=== PATIENT | male | born 1965 | race Caucasian/White ===

== ENCOUNTER 2022-01-02 12:24 | Outpatient (RCR) | payer OTHER ==
[2022-01-02 14:26] LABS: BASOPHILS % (AUTO) 0 % (0-10); EOSINOPHILS # (AUTO) 0.1 10^3/uL (0.0-0.3); EOSINOPHILS % (AUTO) 1 % (0-10); HEMATOCRIT 28 % (40-54); HEMOGLOBIN 8.3 g/dL (13.3-17.7); LYMPHOCYTES # (AUTO) 1.9 10^3/uL (1.0-4.0); LYMPHOCYTES % (AUTO) 21 % (12-44); MEAN CORPUSCULAR HEMOGLOBIN 24 pg (25-34); MEAN CORPUSCULAR HGB CONC 30 g/dL (32-36); MEAN CORPUSCULAR VOLUME 79 fL (80-99); MEAN PLATELET VOLUME 8.7 fL (9.0-12.2); MONOCYTES % (AUTO) 11 % (0-12); NEUTROPHILS # (AUTO) 5.9 10^3/uL (1.8-7.8); NEUTROPHILS % (AUTO) 64 % (42-75); PLATELET COUNT 460 10^3/uL (130-400); WHITE BLOOD COUNT 9.2 10^3/uL (4.3-11.0)
[2022-01-02 14:54] LABS: ALBUMIN 3.6 GM/DL (3.2-4.5); BILIRUBIN,TOTAL 0.4 MG/DL (0.1-1.0); CALCIUM 10.1 MG/DL (8.5-10.1); CREATININE SERUM 0.8 MG/DL (0.60-1.30); POTASSIUM 3.7 MMOL/L (3.6-5.0)
== END 2022-01-04 10:11 | disposition home or self-care (01) ==
LOC: ONC 12:24
PROVIDERS: ATTEND Internal Medicine Hematology & Oncology
DX: C90.00 Multiple myeloma not having achieved remission (principal); M84.40XA Pathological fracture, unspecified site, initial encounter for fracture; E11.9 Type 2 diabetes mellitus without complications; E78.5 Hyperlipidemia, unspecified; I10 Essential (primary) hypertension
CPT/HCPCS: 80053; 83883; 84155; 84165; 85025

== ENCOUNTER → 2022-01-10 | Outpatient (CLI) | payer OTHER ==
[~2022-01-10] MED LIST: CATHETER FLUSH 10 ML SYR IV PRN; HOLD METFORMIN - RECEIVED CONTRAST 20 ML VIAL IV SCH; IOHEXOL 350 MG/ML 100 ML (OMNIPAQUE 350) VIAL IV ONE; NS 100 ML (IVPB) BAG IV ONE
--- NOTE | 2022-01-10 12:44 | Diagnostic Imaging Report ---
PROCEDURE: CT chest, abdomen, and pelvis with contrast. TECHNIQUE: Multiple contiguous axial images were obtained through the chest, abdomen, and pelvis after the administration of intravenous contrast. Auto Exposure Controls were utilized during the CT exam to meet ALARA standards for radiation dose reduction. INDICATION: Myeloma No priors baseline exam. CHEST: A large permeative lytic lesion in the left humeral head extending caudally into its neck where there is cortical disruption and ashley-osseous soft tissue fullness likely extraosseous extension of tumor. There is a lucency in the T9 vertebral body to its posterior cortex. Multiple areas of rib mottled lucency likely owing to neoplastic infiltration. No lung mass. No thoracic lymphadenopathy. No edema or pneumonia. The aorta is nonaneurysmal. There is a benign calcified granuloma in the right lower lobe lung. ABDOMEN PELVIS: Bone density is also somewhat heterogeneous in the pelvis but no discrete measurable or dominant lytic focus. No pathological fracture. No abdominal pelvic ascites or lymphadenopathy. There is no bowel, biliary or urinary tract obstruction and no suspicious mass or inflammatory process. IMPRESSION: Mottled areas of heterogeneous bony lucency likely owing to multifocal involvement by myeloma lesions most conspicuous in the left proximal humerus and the T9 vertebral body. No findings to suggest soft tissue involvement by neoplasm in the chest, abdomen or pelvis. Dictated by: Dictated on workstation # [id number]
--- NOTE | 2022-01-10 16:50 | Diagnostic Imaging Report ---
EXAMINATION: Whole body bone scan. INDICATION: Multiple myeloma. COMPARISON: Comparison is made with a CT of the chest, abdomen, and pelvis performed the same day. TECHNIQUE: After intravenous administration of 26.7 mCi of technetium 99m MDP, delayed anterior and posterior whole body images were acquired. FINDINGS: There are numerous regions of abnormal osseous uptake demonstrated. There is multifocal abnormal activity demonstrated within the calvarium. There is extensive activity demonstrated within the proximal aspect of the humerus bilaterally, left greater than right. There is multifocal abnormal activity demonstrated throughout the midthoracic spine. There are several ribs which demonstrate abnormal activity. This appears most advanced involving the anterior aspect of the left sixth rib and the right fifth rib. There is abnormal activity within the lumbar spine which appears most advanced at approximately the L4 level. There is also abnormal activity demonstrated throughout the right hemipelvis and within the right femoral head and neck. There is abnormal activity within the proximal aspect of both of the femoral shafts. The kidneys are visualized. There is activity within the urinary bladder. IMPRESSION: Extensive abnormal radionuclide accumulation throughout the skeleton as described compatible with active myelomatous involvement. Dictated by: Dictated on workstation # [id number]
== END ==
LOC: CARD 11:00
PROVIDERS: ATTEND Internal Medicine Hematology & Oncology
DX: C90.00 Multiple myeloma not having achieved remission (principal)
CPT/HCPCS: 71260; 74177; 78306; A9503

== ENCOUNTER 2022-01-21 06:52 | Day surgery (SDC) | payer MEDICAID, OTHER ==
[~2022-01-21] VITALS: Ht 172.7 cm; Wt 92.5 kg
[2022-01-21] VITALS (9 sets, daily range): BP systolic 127–165; BP diastolic 72–95
[2022-01-21 07:45] LABS: ABSOLUTE RETIC # 119 10e9/uL (24-90); BASOPHILS % (AUTO) 0 % (0-10); EOSINOPHILS % (AUTO) 0 % (0-10); HEMATOCRIT 28 % (40-54); HEMOGLOBIN 8.2 g/dL (13.3-17.7); LYMPHOCYTES # (AUTO) 2.7 10^3/uL (1.0-4.0); LYMPHOCYTES % (AUTO) 16 % (12-44); MEAN CORPUSCULAR HEMOGLOBIN 23 pg (25-34); MEAN CORPUSCULAR HGB CONC 30 g/dL (32-36); MEAN CORPUSCULAR VOLUME 78 fL (80-99); MEAN PLATELET VOLUME 9.5 fL (9.0-12.2); MONOCYTES # (AUTO) 1.6 10^3/uL (0.0-1.0); MONOCYTES % (AUTO) 9 % (0-12); NEUTROPHILS # (AUTO) 11.8 10^3/uL (1.8-7.8); NEUTROPHILS % (AUTO) 67 % (42-75); PLATELET COUNT 471 10^3/uL (130-400); RETICULOCYTE % 3.33 % (0.50-2.40); WHITE BLOOD COUNT 17.5 10^3/uL (4.3-11.0)
[2022-01-21] MEDS ORDERED: PANT40TA52 PO (07:59)
[2022-01-21] MEDS ORDERED: CYCL15CA23 PO (07:59)
[2022-01-21] MEDS ORDERED: ROPI0.253 PO (07:59)
[2022-01-21] MEDS ORDERED: TMSL.4C PO (07:59)
[2022-01-21] MEDS ORDERED: DOCU-143 PO (07:59)
[2022-01-21] MEDS ORDERED: DICL100G13 TP (07:59)
[2022-01-21] MEDS ORDERED: OXYC1TAB87 PO (07:59)
[2022-01-21] MEDS ORDERED: DEXA4TAB66 PO (07:59)
[2022-01-21] MEDS ORDERED: INDO50CA82 PO (07:59)
[2022-01-21] MEDS ORDERED: FERR-84 PO (07:59)
[2022-01-21] MEDS ORDERED: NS IV 1000 ML 1,000 ML IV STA (08:06)
[2022-01-21] MEDS ORDERED: fentaNYL INJ 100 MCG/2 ML AMP IVP ONE (08:15)
[2022-01-21] MEDS ORDERED: MIDAZOLAM 2 MG/2 ML (VERSED) VIAL IVP ONE (08:15)
[2022-01-21] MEDS ORDERED: LIDOCAINE 1% INJ 20 ML VIAL INJ ONE (08:15)
[2022-01-21 08:21] LABS: INR 1.2 (0.8-1.4); PROTHROMBIN TIME PATIENT 15.9 SEC (12.2-14.7)
[2022-01-21 08:26] LABS: BAND NEUTROPHILS 0 %; BASOPHILS % (MANUAL) 0 %; EOSINOPHILS % (MANUAL) 0 %; LYMPHOCYTES % (MANUAL) 21 %; MONOCYTES % (MANUAL) 7 %; NEUTROPHILS % (MANUAL) 72 %
[2022-01-21 08:28] LABS: ANISOCYTOSIS MODERATE; NUCLEATED RED BLOOD CELLS 2; POLYCHROMASIA MODERATE
[2022-01-21] MEDS ORDERED: LIDOCAINE 1% INJ 50 ML (XYLOCAINE) VIAL IJ ONE (09:00)
[2022-01-21] MEDS ORDERED: HYDROcodone/APAP 5 MG/325 MG (LORTAB) TAB PO PRN (10:00)
--- NOTE | 2022-01-21 10:50 | Pre-Op Note & Conscious Sedat ---
Pre-Operative Progress Note Date of Available H&P: Jan 21, 2022 Date H&P Reviewed: Jan 21, 2022 Time H&P Reviewed: 09:00 Pre-Op Diagnosis: C90.0 Conscious Sedation Pre-Proced Time 09:00 ASA Score 2 For ASA 3 and 4: Consider anesthesia and medical clearance. Also, for patients with a history of failed moderate sedation consider anesthesia. Airway Lungs Heart ASA score ASA 1: a normal healthy patient ASA 2: a patient with a mild systemic disease (mid diabetes, controlled hypertension, obesity ASA 3: a patient with a severe systemic disease that limits activity (angina, COPD, prior Myocardial infarction) ASA 4: a patient with an incapacitating disease that is a constant threat to life (CHF, renal failure) ASA 5: a moribund patient not expected to survive 24 hrs. (ruptured aneurysm) ASA 6: a declared brain- patient whose organs are being harvested. For emergent operations, add the letter E after the classification Mallampati Classification Grade 2 Sedation Plan Analgesia, Amnesia, Plan communicated to team members, Discussed options with patient/fam, Discussed risks with patient/fam The patient is an appropriate candidate to undergo the planned procedure, sedation, and anesthesia. The patient immediately re-assessed prior to indication. ERIK BUTCHER MD Jan 21, 2022 10:50
--- NOTE | 2022-01-21 11:02 | Diagnostic Imaging Report ---
INDICATION: C90.0. Patient presents for CT-guided bone marrow aspiration and core biopsy. Patient brought to the CT suite placed on table in the prone position. Axial imaging through the pelvis was performed to evaluate appropriate entry site. The procedure was performed utilizing conscious sedation with radiology nursing and constant patient monitoring. Patient was given a total of 100 mcg of fentanyl intravenously and 1 mg of Versed intravenously. Total procedure time was approximately 7 minutes. Low back was prepped and draped in usual sterile fashion. Small amount of 1% lidocaine was utilized for local anesthesia. A bone marrow needle was advanced and placed with its tip along the posterior cortex of the right iliac bone. The needle was advanced to the cortex utilizing a bone marrow drill. Bone marrow aspirate was performed. Only a small amount of aspirate could be obtained. Therefore a core biopsy was obtained utilizing the bone marrow drill. The needle was then repositioned and placed into the marrow of the right iliac bone bone and a 2nd core biopsy was obtained. Needle was removed and hemostasis was obtained using manual compression. Patient tolerated the procedure well and left the department in stable condition. IMPRESSION: Successful CT-guided bone marrow aspiration and core biopsy, utilizing conscious sedation. Dictated by: Dictated on workstation # [id number]
== END 2022-01-21 12:25 | disposition home or self-care (01) ==
LOC: RAD 06:52 → SDC 09:50 → RAD 12:25
PROVIDERS: ATTEND Internal Medicine Hematology & Oncology
DX: C90.00 Multiple myeloma not having achieved remission (principal); D72.829 Elevated white blood cell count, unspecified; D63.0 Anemia in neoplastic disease
CPT/HCPCS: 36415; 38222; 77012; 85007; 85027; 85045; 85055; 85610; 85730; 99156

== ENCOUNTER 2022-02-06 12:54 | Outpatient (RCR) | payer MEDICAID, OTHER ==
[~2022-02-06 12:54] MED LIST changes: -CATHETER FLUSH 10 ML SYR IV PRN; +CYCL15CA23 PO; +DEXA4TAB66 PO; +DICL100G13 TP; +DOCU-143 PO; +FERR-84 PO; -HOLD METFORMIN - RECEIVED CONTRAST 20 ML VIAL IV SCH; +INDO50CA82 PO; -IOHEXOL 350 MG/ML 100 ML (OMNIPAQUE 350) VIAL IV ONE; -NS 100 ML (IVPB) BAG IV ONE; +OXYC1TAB87 PO; +PANT40TA52 PO; +ROPI0.253 PO; +TMSL.4C PO
== END 2022-02-13 | disposition home or self-care (01) ==
LOC: ONC 12:54
PROVIDERS: ATTEND Internal Medicine Hematology & Oncology
DX: Z51.0 Encounter for antineoplastic radiation therapy (principal); C90.00 Multiple myeloma not having achieved remission; E11.9 Type 2 diabetes mellitus without complications; E78.5 Hyperlipidemia, unspecified; I10 Essential (primary) hypertension
CPT/HCPCS: 86334; G0463; 77280; 77290; 77295; 77300; 77334; 77336; 77417; 99204; 99213

== ENCOUNTER 2022-03-16 23:09 | Emergency (ER) | payer MEDICAID ==
[~2022-03-16] VITALS: Ht 172.7 cm; Wt 86.3 kg
[2022-03-16] MEDS ORDERED: FAMOTIDINE 20 MG (PEPCID) TABLET PO STA (23:23)
[2022-03-16] MEDS ORDERED: NITROGLYCERIN 2% OINT 1 GM UNIT DOSE PACKET TOP ONE (23:30)
[2022-03-16] MEDS ORDERED: ANTACID SUSP 30 ML UDC (MYLANTA) PO ONE (23:30)
[2022-03-16] MEDS ORDERED: LIDOCAINE 2% VISCOUS 15 ML UDC PO ONE (23:30)
--- NOTE | 2022-03-16 23:35 | ED Chest Pain ---
General Stated Complaint: TROUBLE BREATHING Source: patient, family Exam Limitations: no limitations History of Present Illness Date Seen by Provider: Mar 16, 2022 Time Seen by Provider: 23:13 Initial Comments 56yoM with newly diagnosed diffused B cell lymphoma (severe bone pain, fell and fractured left shoulder eventually leading to surgery as well as a bone biopsy, started R-CHOP cycle one a couple weeks ago) coming in due to chest pain. The pain started about 22 hours ago. It's a pressure type pain that is moderate to severe and has been constant. He has never had pain like this before. Denies any prior history of blood clots in his legs or lungs. Denies any new swelling or pain in his legs. Did have recent surgery for the shoulder within the past month roughly in which she was under general anesthesia. Denies any cardiac history including no stents in his heart. Does not smoke and is not diabetic. Is otherwise denying any shortness of breath, fever, abdominal pain, nausea, v omiting, diarrhea, rash, or any other concerns. Allergies and Home Medications Allergies Coded Allergies: diphenhydramine (Unverified Allergy, Severe, THROAT SWELLS SHUT, 01/21/22) gabapentin (Unverified Allergy, Mild, 01/21/22) Patient Home Medication List Home Medication List Reviewed: Yes Cyclobenzaprine HCl (Cyclobenzaprine HCl ER) 15 Mg Cap.er.24h, 15 MG PO DAILY, (Reported) Entered as Reported by: CARMENCITA CHAVEZ on 01/21/22758 Dexamethasone (Decadron) 4 Mg Tablet, 4 MG PO DAILY, (Reported) Entered as Reported by: CARMENCITA CHAVEZ on 01/21/22758 Diclofenac Sodium (Diclofenac Sodium) 1 % Gel..gram., 100 GM TP PRN, (Reported) Entered as Reported by: CARMENCITA CHAVEZ on 01/21/22758 Docusate Sodium (Colace) 100 Mg Capsule, 100 MG PO DAILY, (Reported) Entered as Reported by: CARMENCITA CHAVEZ on 01/21/22758 Ferrous Sulfate (Iron) 325 Mg (65 Mg Iron) Tablet, 325 MG PO DAILY, (Reported) Entered as Reported by: CARMENCITA CHAVEZ on 01/21/22758 Indomethacin (Indomethacin) 50 Mg Capsule, 50 MG PO DAILY, (Reported) Entered as Reported by: CARMENCITA CHAVEZ on 01/21/22758 Oxycodone HCl/Acetaminophen (Percocet 5-325 mg Tablet) 1 Each Tablet, 1 TAB PO Q6H, (Reported) Entered as Reported by: CARMENCITA CHAVEZ on 01/21/22758 Pantoprazole Sodium (Pantoprazole Sodium) 40 Mg Tablet.dr, 40 MG PO DAILY, (Reported) Entered as Reported by: CARMENCITA CHAVEZ on 01/21/22758 Ropinirole HCl (Ropinirole HCl) 0.25 Mg Tablet, 0.25 MG PO BID, (Reported) Entered as Reported by: CARMENCITA CHAVEZ on 01/21/22758 Tamsulosin HCl (Flomax) 0.4 Mg Cap, 0.4 MG PO DAILY, (Reported) Entered as Reported by: CARMENCITA CHAVEZ on 01/21/22758 Review of Systems Review of Systems Constitutional: No fever EENTM: No Blurred Vision Respiratory: Denies Cough Cardiovascular: Chest Pain Gastrointestinal: Denies Abdominal Pain Genitourinary: No Symptoms Reported Musculoskeletal: no symptoms reported Skin: no symptoms reported Psychiatric/Neurological: No Symptoms Reported Endocrine: No Symptoms Reported Hematologic/Lymphatic: No Symptoms Reported All Other Systems Reviewed Negative Unless Noted: Yes Past Ekhhhtt-Euakxp-Vgrdjs Hx Patient Social History Tobacco Use?: No Substance use?: No Alcohol Use?: No Past Medical History Surgeries: Yes Orthopedic Physical Exam Vital Signs Vital Signs - First Documented 03/16/22 23:13 Temp 36.3 Pulse 102 Resp 20 B/P (MAP) 190/99 (129) O2 Delivery Room Air Capillary Refill : Height, Weight, BMI Height: '" Weight: lbs. oz. kg; BMI Method: General Appearance: No Apparent Distress, WD/WN HEENT: PERRL/EOMI, Normal ENT Inspection, Pharynx Normal Neck: Full Range of Motion, Normal Inspection, Non Tender, Supple Respiratory: Chest Non Tender, Lungs Clear, Normal Breath Sounds, No Accessory Muscle Use, No Respiratory Distress Cardiovascular: No Edema, Normal Peripheral Pulses, Tachycardia Gastrointestinal: Normal Bowel Sounds, Non Tender, Soft; No Distended, No Guarding Extremity: Normal Capillary Refill, Normal Inspection, Normal Range of Motion, Non Tender, No Calf Tenderness, No Pedal Edema Neurologic/Psychiatric: Alert, No Motor/Sensory Deficits, Normal Mood/Affect Skin: Normal Color, Warm/Dry Lymphatic: No Adenopathy Progress/Results/Core Measures Results/Orders Lab Results Laboratory Tests Test 03/16/22 23:30 Range/Units White Blood Count 1.2 *L 4.3-11.0 10^3/uL Red Blood Count 3.91 L 4.30-5.52 10^6/uL Hemoglobin 9.7 L 13.3-17.7 g/dL Hematocrit 31 L 40-54 % Mean Corpuscular Volume 79 L 80-99 fL Mean Corpuscular Hemoglobin 25 25-34 pg Mean Corpuscular Hemoglobin Concent 31 L 32-36 g/dL Red Cell Distribution Width 19.9 H 10.0-14.5 % Platelet Count 106 L 130-400 10^3/uL Mean Platelet Volume 9.3 9.0-12.2 fL Immature Granulocyte % (Auto) 8 % Neutrophils (%) (Auto) 34 L 42-75 % Lymphocytes (%) (Auto) 31 12-44 % Monocytes (%) (Auto) 26 H 0-12 % Eosinophils (%) (Auto) 1 0-10 % Basophils (%) (Auto) 1 0-10 % Neutrophils # (Auto) 0.4 L 1.8-7.8 10^3/uL Lymphocytes # (Auto) 0.4 L 1.0-4.0 10^3/uL Monocytes # (Auto) 0.3 0.0-1.0 10^3/uL Eosinophils # (Auto) 0.0 0.0-0.3 10^3/uL Basophils # (Auto) 0.0 0.0-0.1 10^3/uL Immature Granulocyte # (Auto) 0.1 0.0-0.1 10^3/uL Neutrophils % (Manual) 39 % Lymphocytes % (Manual) 44 % Monocytes % (Manual) 16 % Eosinophils % (Manual) 1 % Nucleated Red Blood Cells 3 Percent Immature Platelet Fraction 2.4 0.0-7.6 % Polychromasia SLIGHT Basophilic Stippling SLIGHT Anisocytosis SLIGHT Macrocytosis SLIGHT Prothrombin Time 14.2 12.2-14.7 SEC INR Comment 1.1 0.8-1.4 Activated Partial Thromboplast Time 26 24-35 SEC Sodium Level 134 L 135-145 MMOL/L Potassium Level 3.8 3.6-5.0 MMOL/L Chloride Level 95 L 98-107 MMOL/L Carbon Dioxide Level 27 21-32 MMOL/L Anion Gap 12 5-14 MMOL/L Blood Urea Nitrogen 12 7-18 MG/DL Creatinine 0.66 0.60-1.30 MG/DL Estimat Glomerular Filtration Rate 109 BUN/Creatinine Ratio 18 Glucose Level 144 H 70-105 MG/DL Calcium Level 8.7 8.5-10.1 MG/DL Corrected Calcium 9.0 8.5-10.1 MG/DL Magnesium Level 2.0 1.6-2.4 MG/DL Total Bilirubin 0.7 0.1-1.0 MG/DL Aspartate Amino Transf (AST/SGOT) 9 5-34 U/L Alanine Aminotransferase (ALT/SGPT) 12 0-55 U/L Alkaline Phosphatase 148 H 40-136 U/L Troponin I < 0.30 <0.30 NG/ML Pro-B-Type Natriuretic Peptide 128.1 H <125.0 PG/ML Total Protein 6.0 L 6.4-8.2 GM/DL Albumin 3.6 3.2-4.5 GM/DL Lipase 12 8-78 U/L My Orders Orders - DANN BETANCOURT MD Cbc With Automated Diff (03/16/22:23) Comprehensive Metabolic Panel (03/16/22:23) Lipase (03/16/22 23:23) Magnesium (03/16/22:23) Protime With Inr (03/16/22:23) Partial Thromboplastin Time (03/16/22:23) Probnp Fs (03/16/22:23) Troponin I Fs (03/16/22 23:23) Ekg Tracing (03/16/22:23) O2 (03/16/22 23:23) Monitor-Rhythm Ecg Trace Only (03/16/22 23:23) Ed Iv/Invasive Line Start (03/16/22 23:23) Ct Angio Chest W (03/16/22:23) Lidocaine 2% Viscous 15 Ml (Xylocaine Vi (03/16/22 23:30) Famotidine Tablet (Pepcid Tablet) (03/16/22 23:23) Antacid Suspension (Mylanta Suspension (03/16/22 23:30) Nitroglycerin Ointment (Nitrobid Ointme (03/16/22 23:30) Iohexol Injection (Omnipaque 350 Mg/Ml 1 (03/16/22 23:45) Received Contrast (Hold Metformin- Contr (03/16/22 23:45) Sodium Chloride Flush (Catheter Flush Sy (03/16/22 23:45) Ns (Ivpb) (Sodium Chloride 0.9% Ivpb Bag (03/16/22 23:45) Manual Differential (03/16/22 23:30) Lorazepam Injection (Ativan Injection) (03/16/22 23:59) Morphine Injection (Morphine Injection (03/17/22 00:45) Acetaminophen Tablet (Tylenol Tablet) (03/17/22 00:45) Ondansetron Injection (Zofran Injectio (03/17/22 00:45) Morphine Injection (Morphine Injection (03/17/22 00:45) Oxycodone Immediate Rel Tablet (Oxyir Ta (03/17/22 00:45) Medications Given in ED Current Medications Medications Dose Ordered Sig/Maksim Route Start Time Stop Time Status Last Admin Dose Admin Acetaminophen 1,000 mg ONCE PRN PO 03/17/22 00:45 03/17/22 00:46 1,000 MG Al Hydrox/Mg Hydrox/Simethicone 30 ml ONCE ONCE PO 03/16/22 23:30 03/16/22 23:31 DC 03/16/22 23:38 30 ML Iohexol 100 ml ONCE ONCE IV 10 23:45 03/16/22 23:46 DC 03/17/22 00:24 100 ML Lidocaine HCl 15 ml ONCE ONCE PO 03/16/22 23:30 03/16/22 23:31 DC 03/16/22 23:38 15 ML Morphine Sulfate 8 mg ONCE PRN IVP 03/17/22 00:45 03/17/22 00:45 8 MG Nitroglycerin 1 inch ONCE ONCE TOP 03/16/22 23:30 03/16/22 23:31 DC 03/16/22 23:47 1 INCH Ondansetron HCl 4 mg ONCE PRN IVP 03/17/22 00:45 03/17/22 00:41 4 MG Oxycodone HCl 5 mg ONCE PRN PO 03/17/22 00:45 03/17/22 00:50 5 MG Sodium Chloride 10 ml NEEDED PRN IV 03/16/22 23:45 03/17/22 00:24 10 ML Sodium Chloride 100 ml ONCE ONCE IV 03/16/22 23:45 03/16/22 23:46 DC 03/17/22 00:24 100 ML Vital Signs/I&O 03/16/22 23:13 Temp 36.3 Pulse 102 Resp 20 B/P (MAP) 190/99 (129) O2 Delivery Room Air Progress Progress Note : Progress Note 56-year-old male with above history coming in due to chest pain. ABCs were intact and vitals were stable on presentation although he is mildly tachycardic. EKG with sinus tachycardia with no acute ischemic changes. Per Wells criteria, his score is 7 making him high risk for a PE. Basic labs were obtained including troponin which was negative, BNP which was only slightly elevated and nonspecific, normal creatinine, he is neutropenic which is expected on his chemotherapy. CTA chest ordered to assess for PE versus some other etiology of the pain. He was given a GI cocktail initially which did not help si gnificantly. He was then given morphine given he is on relatively large amounts of opioids at home which did help with his pain. CT per stat rad read was negative for PE or other acute findings. Does have some changes to his T8 and L1 vertebral bodies which could be metastatic disease. I discussed this with the patient to bring it up with his oncologist. I otherwise believe he is stable for discharge with outpatient follow-up. He was sent home with strict return precautions. Initial ECG Impression Date: Mar 16, 2022 Initial ECG Impression Time: 23:18 Initial ECG Rate: 103 Initial ECG Rhythm: S.Tach Comment Narrow QRS, normal axis, no significant ST elevation, T wave flattening in aVL which is nonspecific Diagnostic Imaging Diagonstic Imaging: CT (CTA chest) Departure Impression Primary Impression: Chest pain Qualified Codes: R07.82 - Intercostal pain Disposition: HOME, SELF-CARE Condition: Stable Departure-Patient Inst. Referrals: ANAHY CAMPBELL (PCP/Family) Primary Care Physician Patient Instructions: Chest Pain (DC) Add. Discharge Instructions: Fortunately it does not appear like you are having heart attack, blood clot, or anything more life-threatening as a cause of your chest pain. It could be related to the large amounts of steroids you are on irritating your stomach lining and esophagus which can cause similar discomfort. I recommend following up with your regular doctor to discuss the symptoms. You do have some changes on the CT in your spine at the T8 and L1 level which could be from the cancer. Please bring this up to your oncologist if they are not already aware. Work/School Note: Work Release Form Date Seen in the Emergency Department: Mar 17, 2022 Return to Work: Mar 18, 2022 Restrictions: No Restrictions DANN BETANCOURT MD Mar 16, 2022 23:35
[2022-03-16 23:37] LABS: BASOPHILS % (AUTO) 1 % (0-10); EOSINOPHILS % (AUTO) 1 % (0-10); HEMATOCRIT 31 % (40-54); HEMOGLOBIN 9.7 g/dL (13.3-17.7); LYMPHOCYTES # (AUTO) 0.4 10^3/uL (1.0-4.0); LYMPHOCYTES % (AUTO) 31 % (12-44); MEAN CORPUSCULAR HEMOGLOBIN 25 pg (25-34); MEAN CORPUSCULAR HGB CONC 31 g/dL (32-36); MEAN CORPUSCULAR VOLUME 79 fL (80-99); MEAN PLATELET VOLUME 9.3 fL (9.0-12.2); MONOCYTES # (AUTO) 0.3 10^3/uL (0.0-1.0); MONOCYTES % (AUTO) 26 % (0-12); NEUTROPHILS # (AUTO) 0.4 10^3/uL (1.8-7.8); NEUTROPHILS % (AUTO) 34 % (42-75); PLATELET COUNT 106 10^3/uL (130-400)
[2022-03-16] MEDS ORDERED: NS 100 ML (IVPB) BAG IV ONE (23:45)
[2022-03-16] MEDS ORDERED: CATHETER FLUSH 10 ML SYR IV PRN (23:45)
[2022-03-16] MEDS ORDERED: HOLD METFORMIN - RECEIVED CONTRAST 20 ML VIAL IV SCH (23:45)
[2022-03-16] MEDS ORDERED: IOHEXOL 350 MG/ML 100 ML (OMNIPAQUE 350) VIAL IV ONE (23:45)
[2022-03-16 23:46] LABS: WHITE BLOOD COUNT 1.2 10^3/uL (4.3-11.0)
[2022-03-16 23:48] LABS: INR 1.1 (0.8-1.4); PROTHROMBIN TIME PATIENT 14.2 SEC (12.2-14.7)
[2022-03-16] MEDS ORDERED: LORazepam INJ 2 MG/ML (ATIVAN) VIAL IVP STA (23:59)
[2022-03-17 00:01] LABS: ALANINE AMINOTRANSFERASE 12 U/L (0-55); ALKALINE PHOSPHATASE 148 U/L (40-136); BILIRUBIN,TOTAL 0.7 MG/DL (0.1-1.0); BUN/CREATININE RATIO 18; CALCIUM 8.7 MG/DL (8.5-10.1); CARBON DIOXIDE 27 MMOL/L (21-32); CHLORIDE 95 MMOL/L (98-107); CREATININE SERUM 0.66 MG/DL (0.60-1.30); GFR ESTIMATED 109; GLUCOSE 144 MG/DL (70-105); POTASSIUM 3.8 MMOL/L (3.6-5.0); SODIUM 134 MMOL/L (135-145)
[2022-03-17 00:02] LABS: ALBUMIN 3.6 GM/DL (3.2-4.5); LIPASE 12 U/L (8-78)
[2022-03-17 00:03] LABS: EOSINOPHILS % (MANUAL) 1 %; LYMPHOCYTES % (MANUAL) 44 %; MONOCYTES % (MANUAL) 16 %; NEUTROPHILS % (MANUAL) 39 %; NUCLEATED RED BLOOD CELLS 3
[2022-03-17 00:04] LABS: ANISOCYTOSIS SLIGHT; POLYCHROMASIA SLIGHT
[2022-03-17] MEDS ORDERED: ACETAMINOPHEN 500 MG TAB (TYLENOL) PO PRN (00:45)
[2022-03-17] MEDS ORDERED: morphine INJ 10 MG/ML 1ML (SYR OR VIAL) IVP PRN ×2 (00:45)
[2022-03-17] MEDS ORDERED: ONDANSETRON 4 MG/2 ML (SDV) Z0FRAN IVP PRN (00:45)
[2022-03-17 01:13] VITALS: BP 184/88
--- NOTE | 2022-03-18 07:31 | Diagnostic Imaging Report ---
PROCEDURE: CT angiography of the chest with contrast. TECHNIQUE: Multiple contiguous axial images were obtained through the chest after uneventful bolus administration of intravenous contrast. 3D reconstructed CTA MIP acquisitions were also performed. Auto Exposure Controls were utilized during the CT exam to meet ALARA standards for radiation dose reduction. INDICATION: Chest pain. History of lymphoma. COMPARISON: 01/10/2022. FINDINGS: This helical CT pulmonary angiogram is diagnostic to the subsegmental level branches of the pulmonary artery and demonstrates no pulmonary emboli. The heart and great vessels are unremarkable. There is no pericardial effusion. A right port is visualized. There is no axillary, mediastinal, or hilar adenopathy. Granuloma is seen in the right lung base. No focal consolidation or mass. No central endobronchial obstructing lesion. No pleural effusion or pneumothorax. There is a heterogeneous appearance of the T8 and L1 vertebral bodies. No acute fracture is seen. Advanced degenerative changes are seen in the left shoulder with prior surgical fixation noted in the proximal left humerus. Limited views of the upper abdomen are unremarkable. IMPRESSION: 1. No acute pulmonary embolus. Negative CT chest. 2. Heterogeneous appearance of the T8 and L1 vertebral bodies. Consider MRI to further evaluate. Agree with overnight report. Dictated by: Dictated on workstation # [id number]
== END 2022-03-17 01:13 | disposition home or self-care (01) ==
LOC: EDUNIT# 23:09 → ER FS 23:13
DX: R07.89 Other chest pain (principal); R00.0 Tachycardia, unspecified; R79.89 Other specified abnormal findings of blood chemistry; Z28.310 Unvaccinated for COVID-19
CPT/HCPCS: 36415; 71275; 80053; 83690; 83735; 83880; 84484; 85007; 85027; 85610; 85730; 93005; 93041

== ENCOUNTER 2022-04-12 06:45 | Emergency (ER) | payer MEDICAID ==
[~2022-04-12] VITALS: Ht 172.7 cm; Wt 85.7 kg
--- NOTE | 2022-04-12 07:01 | ED Chest Pain ---
General Stated Complaint: CHEST PAINS, SOB, HIGH BLOOD PRESSURE History of Present Illness Date Seen by Provider: Apr 12, 2022 Time Seen by Provider: 07:00 Initial Comments 56-year-old male here with complaints of sudden onset shortness of breath at about 3:00 this morning. Patient does have a history of non-small cell lymphoma that was recently diagnosed and he has been doing some chemotherapy treatments. He is following with oncology and [place]. Patient was seen about a month ago for similar symptoms but he also had chest pain at the time. He was negative for DVT then. Patient does have increased shortness of breath. Tachycardia. EKG shows a ventricular rate of [address] elevation or depression. Patient oxygen on room air 95 to 97% although did drop to 91 temporarily. Patient not having any productive cough. No fever or chills. Does get some shivers. Blood pressure currently elevated 160/131. Timing/Duration: 1-3 hours Severity/Quality: moderate Allergies and Home Medications Allergies Coded Allergies: diphenhydramine (Unverified Allergy, Severe, THROAT SWELLS SHUT, 01/21/22) gabapentin (Unverified Allergy, Mild, 01/21/22) Patient Home Medication List Home Medication List Reviewed: Yes Cyclobenzaprine HCl (Cyclobenzaprine HCl ER) 15 Mg Cap.er.24h, 15 MG PO DAILY, (Reported) Entered as Reported by: CARMENCITA CHAVEZ on 01/21/22758 Dexamethasone (Decadron) 4 Mg Tablet, 4 MG PO DAILY, (Reported) Entered as Reported by: CARMENCITA CHAVEZ on 01/21/22758 Diclofenac Sodium (Diclofenac Sodium) 1 % Gel..gram., 100 GM TP PRN, (Reported) Entered as Reported by: CARMENCITA CHAVEZ on 01/21/22758 Docusate Sodium (Colace) 100 Mg Capsule, 100 MG PO DAILY, (Reported) Entered as Reported by: CARMENCITA CHAVEZ on 01/21/22758 Ferrous Sulfate (Iron) 325 Mg (65 Mg Iron) Tablet, 325 MG PO DAILY, (Reported) Entered as Reported by: CARMENCITA CHAVEZ on 01/21/22758 Indomethacin (Indomethacin) 50 Mg Capsule, 50 MG PO DAILY, (Reported) Entered as Reported by: CARMENCITA CHAVEZ on 01/21/22758 Oxycodone HCl/Acetaminophen (Percocet 5-325 mg Tablet) 1 Each Tablet, 1 TAB PO Q6H, (Reported) Entered as Reported by: CARMENCITA CHAVEZ on 01/21/22758 Pantoprazole Sodium (Pantoprazole Sodium) 40 Mg Tablet.dr, 40 MG PO DAILY, (Reported) Entered as Reported by: CARMENCITA CHAVEZ on 01/21/22758 Ropinirole HCl (Ropinirole HCl) 0.25 Mg Tablet, 0.25 MG PO BID, (Reported) Entered as Reported by: CARMENCITA CHAVEZ on 01/21/22758 Tamsulosin HCl (Flomax) 0.4 Mg Cap, 0.4 MG PO DAILY, (Reported) Entered as Reported by: CARMENCITA CHAVEZ on 01/21/22758 Review of Systems Review of Systems Constitutional: see HPI Past Yuhzxlg-Geyqex-Eknmrd Hx Patient Social History Tobacco Use?: No Immunizations Up To Date First/Initial COVID19 Vaccinat: unvaccinated Past Medical History Surgery/Hospitalization HX: B cell Lyphoma diffuse; metastatic to bone, On tx w/ R:[facility], Port placement, Orthopedic repair post fall L shoulder w/ bx, Microcytic anemia, L Inguinal Herniorraphy Surgeries: Yes Orthopedic Physical Exam Vital Signs Vital Signs - First Documented 04/12/22 06:49 Temp 36.8 Pulse 141 Resp 27 B/P (MAP) 148/80 (102) Pulse Ox 95 O2 Delivery Room Air Capillary Refill : Height, Weight, BMI Height: '" Weight: lbs. oz. kg; 28.00 BMI Method: General Appearance: Anxious, Mild Distress HEENT: PERRL/EOMI, TMs Normal, Normal ENT Inspection, Pharynx Normal Neck: Non Tender, Supple Respiratory: No Crackles, No Decreased Breath Sounds; Wheezing (mild ) Cardiovascular: No Murmur, Tachycardia Gastrointestinal: Normal Bowel Sounds, Non Tender, Soft Neurologic/Psychiatric: Alert, Oriented x3 Skin: Normal Color, Warm/Dry Progress/Results/Core Measures Results/Orders Lab Results Laboratory Tests Test 04/12/22 07:00 Range/Units White Blood Count 10.0 4.3-11.0 10^3/uL Red Blood Count 3.52 L 4.30-5.52 10^6/uL Hemoglobin 9.2 L 13.3-17.7 g/dL Hematocrit 29 L 40-54 % Mean Corpuscular Volume 83 80-99 fL Mean Corpuscular Hemoglobin 26 25-34 pg Mean Corpuscular Hemoglobin Concent 31 L 32-36 g/dL Red Cell Distribution Width 23.5 H 10.0-14.5 % Platelet Count 226 130-400 10^3/uL Mean Platelet Volume 9.6 9.0-12.2 fL Immature Granulocyte % (Auto) 12 % Neutrophils (%) (Auto) 76 H 42-75 % Lymphocytes (%) (Auto) 3 L 12-44 % Monocytes (%) (Auto) 9 0-12 % Eosinophils (%) (Auto) 0 0-10 % Basophils (%) (Auto) 0 0-10 % Neutrophils # (Auto) 7.6 1.8-7.8 10^3/uL Lymphocytes # (Auto) 0.3 L 1.0-4.0 10^3/uL Monocytes # (Auto) 0.9 0.0-1.0 10^3/uL Eosinophils # (Auto) 0.0 0.0-0.3 10^3/uL Basophils # (Auto) 0.0 0.0-0.1 10^3/uL Immature Granulocyte # (Auto) 1.2 H 0.0-0.1 10^3/uL Neutrophils % (Manual) 62 % Lymphocytes % (Manual) 3 % Monocytes % (Manual) 6 % Metamyelocytes % 2 % Myelocytes % 2 % Band Neutrophils 25 % Platelet Estimate NORMAL Hypochromasia SLIGHT Microcytosis 1+ Macrocytosis 1+ D-Dimer 2.06 H 0.00-0.49 UG/ML Sodium Level 139 135-145 MMOL/L Potassium Level 3.2 L 3.6-5.0 MMOL/L Chloride Level 99 98-107 MMOL/L Carbon Dioxide Level 23 21-32 MMOL/L Anion Gap 17 H 5-14 MMOL/L Blood Urea Nitrogen 10 7-18 MG/DL Creatinine 0.78 0.60-1.30 MG/DL Estimat Glomerular Filtration Rate 103 BUN/Creatinine Ratio 13 Glucose Level 155 H 70-105 MG/DL Calcium Level 8.9 8.5-10.1 MG/DL Corrected Calcium 9.1 8.5-10.1 MG/DL Total Bilirubin 0.5 0.1-1.0 MG/DL Aspartate Amino Transf (AST/SGOT) 10 5-34 U/L Alanine Aminotransferase (ALT/SGPT) 7 0-55 U/L Alkaline Phosphatase 158 H 40-136 U/L Troponin I < 0.30 <0.30 NG/ML Total Protein 6.4 6.4-8.2 GM/DL Albumin 3.8 3.2-4.5 GM/DL My Orders Orders - KENNY FLEMING MD Ekg Tracing (04/12/22 07:19) Monitor-Rhythm Ecg Trace Only (04/12/22 07:19) Cbc With Automated Diff (04/12/22 07:19) Comprehensive Metabolic Panel (04/12/22 07:19) Fibrin Degradation Products (04/12/22 07:19) Troponin I Fs (04/12/22 07:24) Chest 1 View Ap/Pa Only (04/12/22 07:25) Manual Differential (04/12/22 07:00) Ct Angio Chest W (04/12/22 08:11) Iohexol Injection (Omnipaque 350 Mg/Ml 1 (04/12/22 08:15) Received Contrast (Hold Metformin- Contr (04/12/22 08:15) Sodium Chloride Flush (Catheter Flush Sy (04/12/22 08:15) Ns (Ivpb) (Sodium Chloride 0.9% Ivpb Bag (04/12/22 08:15) Medications Given in ED Current Medications Medications Dose Ordered Sig/Maksim Route Start Time Stop Time Status Last Admin Dose Admin Iohexol 100 ml ONCE ONCE IV 04/12/22 08:15 04/12/22 08:17 DC 04/12/22 08:36 100 ML Sodium Chloride 10 ml NEEDED PRN IV 04/12/22 08:15 04/12/22 08:37 10 ML Sodium Chloride 100 ml ONCE ONCE IV 04/12/22 08:15 04/12/22 08:17 DC 04/12/22 08:37 100 ML Vital Signs/I&O 04/12/22 04/12/22 06:49 06:50 Temp 36.8 Pulse 141 Resp 27 B/P (MAP) 148/80 (102) Pulse Ox 95 O2 Delivery Room Air Room Air Progress Progress Note #1: Time: 08:34 Progress Note labs reviewed. chest xray reviewed. no infection noted in lungs. Ddimer elev ated. due to history of malignancy, wells criteria showing moderate probability, will get CTA chest to rule out PE Progress Note #2: Time: 09:29 Progress Note Discussed with patient results of CT. Patient's oxygen saturation is good at 9596. Will give antibiotic and discharged home. Discussed observation admit patient does not want to do that. Patient to follow-up with his primary care and then oncology Initial ECG Impression Date: Apr 12, 2022 Initial ECG Impression Time: 07:14 Initial ECG Rate: 140 Initial ECG Rhythm: S.Tach Initial ECG Impression: Nonspecific Changes Initial ECG Comparisson: Unchanged (previous EKG done 03/16/22. HR was less but overall rhythm was the same) Diagnostic Imaging Diagonstic Imaging: Xray Plain Films/CT/US/NM/MRI: chest Comments NAME: LAXMI HANSEN [place] REC#: [id number] PT STATUS: REG ER : 1965 PHYSICIAN: KENNY FLEMING MD ADMIT DATE: 04/12/22/ER FS Draft Date of Exam:04/12/22 CHEST 1 VIEW AP/PA ONLY INDICATION: Chest pain, shortness of breath Portable chest 7:31 AM Right IJ Port-A-Cath tip projects over the SVC. Heart size and pulmonary vascularity are normal. Lungs are clear. There is a calcified granuloma in the right lower chest. IMPRESSION: No acute abnormalities in the chest Dictated on workstation # [id number] Dict: 04/12/22 0739 Trans: 04/12/22 0745 [facility] [id number] Interpreted by: MADALYN ABBOTT MD Electronically signed by: CT Results/Progress Notes [place], [place] NAME: LAXMI HANSEN [place] REC#: [id number] PT STATUS: REG ER : 1965 PHYSICIAN: KENNY FLEMING MD ADMIT DATE: 04/12/22/ER FS Signed Date of Exam:04/12/22 CT ANGIO CHEST W PROCEDURE: CT angiography of the chest with contrast. TECHNIQUE: Multiple contiguous axial images were obtained through the chest after uneventful bolus administration of intravenous contrast. 3D reconstructed CTA MIP acquisitions were also performed. Auto Exposure Controls were utilized during the CT exam to meet ALARA standards for radiation dose reduction. INDICATION: Shortness of breath, tachycardia, elevated D-dimer There are some patchy groundglass infiltrates present in both lungs. There is a densely calcified granuloma in the right midlung. There are no pulmonary emboli. There is no right ventricular strain. Aorta is unremarkable. There is no hilar or mediastinal lymphadenopathy. There are no effusions or pneumothoraces. IMPRESSION: Groundglass infiltrates in the lungs could be due to viral pneumonia. Dictated by: Dictated on workstation # [id number] Dict: 04/12/22847 Trans: 04/12/22849 TCB [id number] Interpreted by: MADALYN ABBOTT MD Electronically signed by: MADALYN ABBOTT MD 04/12/22849 Departure Impression Primary Impression: Viral pneumonia Additional Impression: Tachycardia Disposition: HOME, SELF-CARE Condition: Improved Departure-Patient Inst. Decision time for Depature: 09:30 Referrals: ANAHY CAMPBELL (PCP/Family) Primary Care Physician Patient Instructions: Pneumonia in Adults, Tachycardia (DC) Add. Discharge Instructions: It does not appear that your heart is causing any issues today. CT shows patchy groundglass infiltrates for possible viral pneumonia. We will give antibiotic and have patient follow-up with primary care. Scripts Amoxicillin/Potassium Clav (Amox Tr-K Clv 875-125 mg Tab) 875 Mg-125 Mg Tablet 1 EACH PO BID for 10 Days, #20 TAB 0 Refills Prov: KENNY FLEMING MD 04/12/22 KENNY FLEMING MD Apr 12, 2022 07:01
[2022-04-12 07:36] LABS: BASOPHILS % (AUTO) 0 % (0-10); EOSINOPHILS % (AUTO) 0 % (0-10); HEMATOCRIT 29 % (40-54); HEMOGLOBIN 9.2 g/dL (13.3-17.7); LYMPHOCYTES # (AUTO) 0.3 10^3/uL (1.0-4.0); LYMPHOCYTES % (AUTO) 3 % (12-44); MEAN CORPUSCULAR HEMOGLOBIN 26 pg (25-34); MEAN CORPUSCULAR HGB CONC 31 g/dL (32-36); MEAN CORPUSCULAR VOLUME 83 fL (80-99); MEAN PLATELET VOLUME 9.6 fL (9.0-12.2); MONOCYTES # (AUTO) 0.9 10^3/uL (0.0-1.0); MONOCYTES % (AUTO) 9 % (0-12); NEUTROPHILS # (AUTO) 7.6 10^3/uL (1.8-7.8); NEUTROPHILS % (AUTO) 76 % (42-75); PLATELET COUNT 226 10^3/uL (130-400)
--- NOTE | 2022-04-12 07:46 | Diagnostic Imaging Report ---
INDICATION: Chest pain, shortness of breath Portable chest 7:31 AM Right IJ Port-A-Cath tip projects over the SVC. Heart size and pulmonary vascularity are normal. Lungs are clear. There is a calcified granuloma in the right lower chest. IMPRESSION: No acute abnormalities in the chest Dictated by: Dictated on workstation # [id number]
[2022-04-12 07:59] LABS: ALANINE AMINOTRANSFERASE 7 U/L (0-55); ALBUMIN 3.8 GM/DL (3.2-4.5); ALKALINE PHOSPHATASE 158 U/L (40-136); BILIRUBIN,TOTAL 0.5 MG/DL (0.1-1.0); BUN/CREATININE RATIO 13; CALCIUM 8.9 MG/DL (8.5-10.1); CARBON DIOXIDE 23 MMOL/L (21-32); CHLORIDE 99 MMOL/L (98-107); CREATININE SERUM 0.78 MG/DL (0.60-1.30); GFR ESTIMATED 103; GLUCOSE 155 MG/DL (70-105); POTASSIUM 3.2 MMOL/L (3.6-5.0); SODIUM 139 MMOL/L (135-145); TOTAL PROTEIN 6.4 GM/DL (6.4-8.2)
[2022-04-12 08:12] LABS: BAND NEUTROPHILS 25 %; LYMPHOCYTES % (MANUAL) 3 %; METAMYELOCYTES % 2 %; MONOCYTES % (MANUAL) 6 %; MYELOCYTES % 2 %; NEUTROPHILS % (MANUAL) 62 %
[2022-04-12 08:13] LABS: PLATELET ESTIMATE NORMAL
[2022-04-12 08:14] LABS: HYPOCHROMASIA SLIGHT; MICROCYTOSIS 1+
[2022-04-12] MEDS ORDERED: HOLD METFORMIN - RECEIVED CONTRAST 20 ML VIAL IV SCH (08:15)
[2022-04-12] MEDS ORDERED: CATHETER FLUSH 10 ML SYR IV PRN (08:15)
[2022-04-12] MEDS ORDERED: NS 100 ML (IVPB) BAG IV ONE (08:15)
[2022-04-12] MEDS ORDERED: IOHEXOL 350 MG/ML 100 ML (OMNIPAQUE 350) VIAL IV ONE (08:15)
--- NOTE | 2022-04-12 08:52 | Diagnostic Imaging Report ---
PROCEDURE: CT angiography of the chest with contrast. TECHNIQUE: Multiple contiguous axial images were obtained through the chest after uneventful bolus administration of intravenous contrast. 3D reconstructed CTA MIP acquisitions were also performed. Auto Exposure Controls were utilized during the CT exam to meet ALARA standards for radiation dose reduction. INDICATION: Shortness of breath, tachycardia, elevated D-dimer There are some patchy groundglass infiltrates present in both lungs. There is a densely calcified granuloma in the right midlung. There are no pulmonary emboli. There is no right ventricular strain. Aorta is unremarkable. There is no hilar or mediastinal lymphadenopathy. There are no effusions or pneumothoraces. IMPRESSION: Groundglass infiltrates in the lungs could be due to viral pneumonia. Dictated by: Dictated on workstation # [id number]
[2022-04-12] MEDS ORDERED: AMOX1TAB12 PO (09:33)
[2022-04-12 09:36] VITALS: BP 150/97
== END 2022-04-12 09:38 | disposition home or self-care (01) ==
LOC: EDUNIT# 06:45 → ER FS 06:48
DX: J12.9 Viral pneumonia, unspecified (principal); C34.90 Malignant neoplasm of unspecified part of unspecified bronchus or lung; R00.0 Tachycardia, unspecified; R79.1 Abnormal coagulation profile
CPT/HCPCS: 36415; 71045; 71275; 80053; 84484; 85007; 85027; 85379; 93041; Q9967